=== PATIENT | male | born 1935 | race Caucasian/White ===

== ENCOUNTER → 2021-06-02 | Outpatient (CLI) | payer OTHER ==
[2021-06-02 11:16] LABS: Urine Bacteria NONE SEEN /hpf (None Seen); Urine Blood 1+ /uL (Negative); Urine Specific Gravity 1.014 (1.001-1.035); Urine WBC 2 /hpf (0 - 3)
[2021-06-02 11:42] LABS: Cholesterol 203 mg/dL (< 200); HDL Cholesterol 32 mg/dL (40-59); LDL Cholesterol 127 mg/dL (< 100); Triglycerides 169 mg/dL (< 150)
== END | disposition home or self-care (01) ==
LOC: LAB 10:47
PROVIDERS: ATTEND Internal Medicine
DX: R60.0 Localized edema (principal); B20 Human immunodeficiency virus [HIV] disease
CPT/HCPCS: 36415; 80061; 81001; 83036; 83880; 84443

== ENCOUNTER → 2022-10-05 | Outpatient (CLI) | payer OTHER ==
[2022-10-05 12:41] LABS: Albumin 3.4 g/dL (3.4-5.0); Calcium 8.6 mg/dL (8.5-10.1); Potassium 4.4 mmol/L (3.5-5.1)
[2022-10-05 12:44] LABS: BUN/Creatinine Ratio 11.3
[2022-10-05 12:45] LABS: Bilirubin, Total 0.5 mg/dL (0.2-1.0); Total Protein 7.6 g/dL (6.4-8.2)
== END | disposition home or self-care (01) ==
LOC: LAB 11:58
PROVIDERS: ATTEND Internal Medicine
DX: R06.00 Dyspnea, unspecified (principal)
CPT/HCPCS: 36415; 80053; 83880

== ENCOUNTER → 2023-10-01 | Outpatient (CLI) | payer OTHER ==
[2023-10-01 08:23] LABS: Basophils # (auto) 0.1 10 ^3/uL (0-0.2); Basophils % (auto) 0.7 % (0.0-2.0); Eosinophils # (auto) 0.3 10 ^3/uL (0-0.8); Eosinophils % (auto) 4.2 % (0.0-7.0); Hematocrit 46.1 % (41.0-53.0); Hemoglobin 15.4 g/dL (13.5-17.5); Lymphocytes # (auto) 1.6 10 ^3/uL (0.4-5.4); Mean Corpuscular Hemoglobin 33.2 pg (28.0-32.0); Mean Corpuscular Hgb Conc. 33.5 g/dL (32.0-36.0); Mean Corpuscular Volume 99.2 fL (80.0-100.0); Monocytes # (auto) 0.9 10 ^3/uL (0-1.3); Monocytes % (auto) 10.5 % (0.0-12.0); Neutrophils # (auto) 5.3 10 ^3/uL (1.6-8.6); Neutrophils % (auto) 64.6 % (37.0-80.0); Nucleated Red Blood Cells % 0.2 %; Red Blood Cells 4.65 10^6/uL (4.5-5.90); White Blood Cell 8.2 10^3/uL (4.4-10.8)
[2023-10-01 08:30] LABS: Urine Bacteria NONE SEEN /hpf (None Seen); Urine Blood Negative /uL (Negative); Urine Clarity Clear (Clear); Urine Color Yellow (Yellow); Urine Protein, UAD Negative (Negative); Urine Specific Gravity 1.017 (1.001-1.035); Urine Urobilinogen Normal (Negative); Urine WBC 4 /hpf (0 - 3)
[2023-10-01 08:58] LABS: Alanine Aminotransferase 24 U/L (7-40); Alkaline Phosphatase 61 U/L (46-116); Anion Gap 7 (5-15); Aspartate Aminotransferase 31 U/L (13-40); BUN/Creatinine Ratio 16.1 (10.0-20.0); Blood Urea Nitrogen 22 mg/dL (9-23); Calcium 8.9 mg/dL (8.5-10.1); Carbon Dioxide 26 mmol/L (20-30); Chloride 107 mmol/L (98-107); Glucose 81 mg/dL (74-106); Potassium 4.2 mmol/L (3.5-5.1); Sodium 140 mmol/L (136-145)
[2023-10-01 08:59] LABS: Bilirubin, Total 0.5 mg/dL (0.2-1.0); Total Protein 6.7 g/dL (5.7-8.2)
== END | disposition home or self-care (01) ==
LOC: LAB 08:03
PROVIDERS: ATTEND Internal Medicine
DX: I10 Essential (primary) hypertension (principal); E78.5 Hyperlipidemia, unspecified
CPT/HCPCS: 36415; 80053; 81001; 85025

== ENCOUNTER → 2024-02-21 | Outpatient (CLI) | payer OTHER ==
[2024-02-21 10:43] LABS: Anion Gap 7 (5-15); Carbon Dioxide 25 mmol/L (20-30); Chloride 108 mmol/L (98-107); Sodium 140 mmol/L (136-145)
[2024-02-21 10:44] LABS: Calcium 8.8 mg/dL (8.5-10.1); Creatinine, Urine 119.58 mg/dL (30.0-125.0)
[2024-02-21 10:48] LABS: Glucose 98 mg/dL (74-106)
[2024-02-21 10:49] LABS: BUN/Creatinine Ratio 10.9 (10.0-20.0); Blood Urea Nitrogen 15 mg/dL (9-23); LDL Cholesterol 57 mg/dL (< 100); Triglycerides 87 mg/dL (< 150)
[2024-02-21 10:51] LABS: Cholesterol 104 mg/dL (< 200); HDL Cholesterol 32 mg/dL (40-59)
[2024-02-21 11:24] LABS: Urine Bacteria FEW /hpf (None Seen); Urine Blood Negative /uL (Negative); Urine Clarity Turbid (Clear); Urine Color Light-Yellow (Yellow); Urine Mucus FEW (None Seen); Urine Protein, UAD Negative (Negative); Urine Specific Gravity 1.018 (1.001-1.035); Urine Urobilinogen Normal (Negative); Urine WBC 14 /hpf (0 - 3)
== END | disposition home or self-care (01) ==
LOC: LAB 09:32
PROVIDERS: ATTEND Internal Medicine
DX: N18.30 Chronic kidney disease, stage 3 unspecified (principal); R73.03 Prediabetes
CPT/HCPCS: 36415; 80048; 80061; 81001; 82043; 82570; 83036

== ENCOUNTER → 2024-05-20 | Outpatient (CLI) | payer OTHER ==
[2024-05-20 11:08] LABS: Basophils # (auto) 0.1 10 ^3/uL (0-0.2); Basophils % (auto) 0.9 % (0.0-2.0); Eosinophils # (auto) 0.5 10 ^3/uL (0-0.8); Eosinophils % (auto) 5.7 % (0.0-7.0); Hematocrit 48.8 % (41.0-53.0); Hemoglobin 16.8 g/dL (13.5-17.5); Lymphocytes # (auto) 2.1 10 ^3/uL (0.4-5.4); Lymphocytes % (auto) 26.9 % (10.0-50.0); Mean Corpuscular Hemoglobin 33.5 pg (28.0-32.0); Mean Corpuscular Hgb Conc. 34.5 g/dL (32.0-36.0); Mean Corpuscular Volume 96.9 fL (80.0-100.0); Monocytes # (auto) 0.7 10 ^3/uL (0-1.3); Monocytes % (auto) 8.4 % (0.0-12.0); Neutrophils # (auto) 4.6 10 ^3/uL (1.6-8.6); Neutrophils % (auto) 58.1 % (37.0-80.0); Red Blood Cells 5.04 10^6/uL (4.5-5.90); Red Cell Distribution Width 15.2 % (11.8-14.3); White Blood Cell 7.9 10^3/uL (4.4-10.8)
[2024-05-20 11:30] LABS: Alanine Aminotransferase 17 U/L (7-40); Albumin 4.3 g/dL (3.2-4.8); Alkaline Phosphatase 61 U/L (46-116); Anion Gap 8 (5-15); Blood Urea Nitrogen 17 mg/dL (9-23); Calcium 9.5 mg/dL (8.7-10.4); Carbon Dioxide 25 mmol/L (20-30); Chloride 106 mmol/L (98-107); Glucose 98 mg/dL (74-106); Potassium 4.2 mmol/L (3.5-5.1); Sodium 139 mmol/L (136-145)
[2024-05-20 11:31] LABS: Aspartate Aminotransferase 19 U/L (13-40); Bilirubin, Total 0.8 mg/dL (0.2-1.0); Total Protein 7.2 g/dL (5.7-8.2)
[2024-05-21 05:07] LABS: Baso (Absolute) 0.1 x10E3/uL (0.0-0.2); Basos 1 % (Not Estab.); Eos 5 % (Not Estab.); Eos (Absolute) 0.4 x10E3/uL (0.0-0.4); Hematocrit 50.5 % (37.5-51.0); Hemoglobin 16.9 g/dL (13.0-17.7); Lymphs 29 % (Not Estab.); Lymphs (Absolute) 2.4 x10E3/uL (0.7-3.1); MCH 32.7 pg (26.6-33.0); MCHC 33.5 g/dL (31.5-35.7); MCV 98 fL (79-97); Monocytes 8 % (Not Estab.); Monocytes (Absolute) 0.7 x10E3/uL (0.1-0.9); Neutrophils 56 % (Not Estab.); Neutrophils (Absolute) 4.6 x10E3/uL (1.4-7.0); Platelets 198 x10E3/uL (150-450); RBC 5.17 x10E6/uL (4.14-5.80); RDW 13.6 % (11.6-15.4); WBC 8.2 x10E3/uL (3.4-10.8)
[2024-05-21 07:06] LABS: RPR Non Reactive (Non Reactive)
[2024-05-21 11:06] LABS: % CD 4 Pos Lymph 27.7 % (30.8-58.5); % CD 8 Pos Lymph 49.7 % (12.0-35.5); Absolute CD 4 Helper 665 /uL (359-1519); CD4/CD8 Ratio 0.56 (0.92-3.72)
[2024-05-21 12:06] LABS: Chlamydia Trachomatis, NAA Negative (Negative); Neisseria gonorrhoeae, NAA Negative (Negative)
== END | disposition home or self-care (01) ==
LOC: LAB 10:29
PROVIDERS: ATTEND Specialist
DX: I12.9 Hypertensive chronic kidney disease with stage 1 through stage 4 chronic kidney disease, or unspecified chronic kidney disease (principal); N18.31 Chronic kidney disease, stage 3a; B20 Human immunodeficiency virus [HIV] disease
CPT/HCPCS: 36415; 80053; 85025; 86360; 86592

== ENCOUNTER → 2024-08-26 | Outpatient (CLI) | payer OTHER ==
[2024-08-26 11:45] LABS: Basophils # (auto) 0.1 10 ^3/uL (0-0.2); Eosinophils # (auto) 0.2 10 ^3/uL (0-0.8); Eosinophils % (auto) 2.9 % (0.0-7.0); Hematocrit 51.5 % (41.0-53.0); Hemoglobin 17.6 g/dL (13.5-17.5); Lymphocytes # (auto) 2.1 10 ^3/uL (0.4-5.4); Lymphocytes % (auto) 24.9 % (10.0-50.0); Mean Corpuscular Hemoglobin 33.5 pg (28.0-32.0); Mean Corpuscular Hgb Conc. 34.2 g/dL (32.0-36.0); Monocytes # (auto) 0.7 10 ^3/uL (0-1.3); Monocytes % (auto) 8.3 % (0.0-12.0); Neutrophils # (auto) 5.3 10 ^3/uL (1.6-8.6); Neutrophils % (auto) 62.9 % (37.0-80.0); Nucleated Red Blood Cells % 0.1 %; Platelet Count (auto) 196 10^3/uL (140-450); Red Blood Cells 5.26 10^6/uL (4.5-5.90); Red Cell Distribution Width 14.7 % (11.8-14.3); White Blood Cell 8.5 10^3/uL (4.4-10.8)
[2024-08-26 12:03] LABS: Alanine Aminotransferase 23 U/L (7-40); Albumin 4.1 g/dL (3.2-4.8); Alkaline Phosphatase 57 U/L (46-116); Anion Gap 6 (5-15); Aspartate Aminotransferase 24 U/L (13-40); Blood Urea Nitrogen 16 mg/dL (9-23); Calcium 9.1 mg/dL (8.7-10.4); Carbon Dioxide 26 mmol/L (20-31); Chloride 108 mmol/L (98-107); Glucose 101 mg/dL (74-106); Potassium 4.3 mmol/L (3.5-5.1); Sodium 140 mmol/L (136-145)
[2024-08-26 12:04] LABS: Bilirubin, Total 0.6 mg/dL (0.2-1.0); Total Protein 7.3 g/dL (5.7-8.2)
[2024-08-27 04:06] LABS: Baso (Absolute) 0.1 x10E3/uL (0.0-0.2); Basos 1 % (Not Estab.); Eos 3 % (Not Estab.); Eos (Absolute) 0.2 x10E3/uL (0.0-0.4); Hematocrit 52.2 % (37.5-51.0); Hemoglobin 17.6 g/dL (13.0-17.7); Immature Granulocytes (Abs) 0.1 x10E3/uL (0.0-0.1); Lymphs 27 % (Not Estab.); Lymphs (Absolute) 2.3 x10E3/uL (0.7-3.1); MCH 32.7 pg (26.6-33.0); MCHC 33.7 g/dL (31.5-35.7); MCV 97 fL (79-97); Monocytes 8 % (Not Estab.); Monocytes (Absolute) 0.7 x10E3/uL (0.1-0.9); Neutrophils 60 % (Not Estab.); Neutrophils (Absolute) 5.1 x10E3/uL (1.4-7.0); Platelets 198 x10E3/uL (150-450); RBC 5.38 x10E6/uL (4.14-5.80); RDW 13.7 % (11.6-15.4); WBC 8.5 x10E3/uL (3.4-10.8)
[2024-08-27 12:07] LABS: % CD 4 Pos Lymph 28.1 % (30.8-58.5); % CD 8 Pos Lymph 51.6 % (12.0-35.5); Absolute CD 4 Helper 646 /uL (359-1519); CD4/CD8 Ratio 0.54 (0.92-3.72)
== END | disposition home or self-care (01) ==
LOC: LAB 11:10
PROVIDERS: ATTEND Specialist
DX: B20 Human immunodeficiency virus [HIV] disease (principal); N18.31 Chronic kidney disease, stage 3a
CPT/HCPCS: 36415; 80053; 85025; 86360

== ENCOUNTER → 2024-10-05 | Outpatient (CLI) | payer OTHER ==
[2024-10-05 09:40] LABS: Urine Bacteria None Seen /hpf (None Seen)
[2024-10-05 09:44] LABS: Basophils # (auto) 0.1 10 ^3/uL (0-0.2); Eosinophils # (auto) 0.3 10 ^3/uL (0-0.8); Eosinophils % (auto) 3.4 % (0.0-7.0); Hematocrit 49.2 % (41.0-53.0); Hemoglobin 16.5 g/dL (13.5-17.5); Lymphocytes % (auto) 24.8 % (10.0-50.0); Mean Corpuscular Hemoglobin 32.3 pg (28.0-32.0); Mean Corpuscular Hgb Conc. 33.6 g/dL (32.0-36.0); Monocytes # (auto) 0.7 10 ^3/uL (0-1.3); Neutrophils % (auto) 61.8 % (37.0-80.0); Nucleated Red Blood Cells % 0.1 %; Platelet Count (auto) 224 10^3/uL (140-450); Red Blood Cells 5.12 10^6/uL (4.5-5.90); Red Cell Distribution Width 14.7 % (11.8-14.3); White Blood Cell 8.1 10^3/uL (4.4-10.8)
[2024-10-05 10:03] LABS: Urine Blood Negative /uL (Negative); Urine Clarity Clear (Clear); Urine Color Light-Yellow (Yellow); Urine Mucus FEW (None Seen); Urine Protein, UAD Negative (Negative); Urine Specific Gravity 1.018 (1.001-1.035); Urine Urobilinogen Normal (Negative); Urine WBC 1 /hpf (0 - 3)
[2024-10-05 10:41] LABS: Alanine Aminotransferase 20 U/L (7-40); Alkaline Phosphatase 59 U/L (46-116); Anion Gap 7 (5-15); Aspartate Aminotransferase 26 U/L (13-40); BUN/Creatinine Ratio 13.1 (10.0-20.0); Blood Urea Nitrogen 20 mg/dL (9-23); Calcium 9.6 mg/dL (8.7-10.4); Carbon Dioxide 26 mmol/L (20-31); Cholesterol 182 mg/dL (< 200); Glucose 90 mg/dL (74-106); Potassium 4.5 mmol/L (3.5-5.1); Sodium 141 mmol/L (136-145)
[2024-10-05 10:42] LABS: Bilirubin, Total 0.4 mg/dL (0.2-1.0); Total Protein 7.3 g/dL (5.7-8.2)
[2024-10-05 10:56] LABS: Chloride 108 mmol/L (98-107); HDL Cholesterol 35 mg/dL (40-59); LDL Cholesterol 108 mg/dL (< 100); Triglycerides 222 mg/dL (< 150)
[2024-10-06 04:06] LABS: Baso (Absolute) 0.1 x10E3/uL (0.0-0.2); Basos 1 % (Not Estab.); Eos 4 % (Not Estab.); Eos (Absolute) 0.3 x10E3/uL (0.0-0.4); Hematocrit 49.4 % (37.5-51.0); Hemoglobin 16.7 g/dL (13.0-17.7); Immature Granulocytes (Abs) 0.1 x10E3/uL (0.0-0.1); Lymphs 26 % (Not Estab.); Lymphs (Absolute) 2.1 x10E3/uL (0.7-3.1); MCH 32.7 pg (26.6-33.0); MCHC 33.8 g/dL (31.5-35.7); MCV 97 fL (79-97); Monocytes 8 % (Not Estab.); Monocytes (Absolute) 0.7 x10E3/uL (0.1-0.9); Neutrophils 60 % (Not Estab.); Neutrophils (Absolute) 4.8 x10E3/uL (1.4-7.0); Platelets 217 x10E3/uL (150-450); RDW 13.2 % (11.6-15.4)
[2024-10-06 15:06] LABS: % CD 4 Pos Lymph 27.2 % (30.8-58.5); Absolute CD 4 Helper 571 /uL (359-1519); CD4/CD8 Ratio 0.56 (0.92-3.72)
== END | disposition home or self-care (01) ==
LOC: LAB 09:26
PROVIDERS: ATTEND Internal Medicine
DX: E78.5 Hyperlipidemia, unspecified (principal); I25.9 Chronic ischemic heart disease, unspecified; R73.03 Prediabetes; Z21 Asymptomatic human immunodeficiency virus [HIV] infection status
CPT/HCPCS: 36415; 80053; 80061; 81001; 83036; 84443; 85025; 86360

== ENCOUNTER 2025-03-25 09:38 | Outpatient (CLI) | payer OTHER ==
[2025-03-25 10:11] LABS: Basophils # (auto) 0.1 10 ^3/uL (0-0.2); Basophils % (auto) 0.9 % (0.0-2.0); Eosinophils # (auto) 0.3 10 ^3/uL (0-0.8); Eosinophils % (auto) 3.9 % (0.0-7.0); Hematocrit 48.6 % (41.0-53.0); Hemoglobin 16.5 g/dL (13.5-17.5); Lymphocytes # (auto) 2.2 10 ^3/uL (0.4-5.4); Lymphocytes % (auto) 28.3 % (10.0-50.0); Mean Corpuscular Hemoglobin 32.7 pg (28.0-32.0); Mean Corpuscular Hgb Conc. 33.9 g/dL (32.0-36.0); Mean Corpuscular Volume 96.4 fL (80.0-100.0); Monocytes # (auto) 0.7 10 ^3/uL (0-1.3); Monocytes % (auto) 8.5 % (0.0-12.0); Neutrophils # (auto) 4.6 10 ^3/uL (1.6-8.6); Neutrophils % (auto) 58.4 % (37.0-80.0); Nucleated Red Blood Cells % 0.2 %; Platelet Count (auto) 189 10^3/uL (140-450); Red Blood Cells 5.04 10^6/uL (4.5-5.90); Red Cell Distribution Width 14.7 % (11.8-14.3); White Blood Cell 7.9 10^3/uL (4.4-10.8)
[2025-03-25 10:45] LABS: Alanine Aminotransferase 13 U/L (7-40); Alkaline Phosphatase 54 U/L (46-116); Anion Gap 6 (5-15); Aspartate Aminotransferase 17 U/L (13-40); Blood Urea Nitrogen 21 mg/dL (9-23); Calcium 9.6 mg/dL (8.7-10.4); Carbon Dioxide 27 mmol/L (20-31); Potassium 4.7 mmol/L (3.5-5.1); Sodium 143 mmol/L (136-145); Total Protein 7.2 g/dL (5.7-8.2)
[2025-03-25 10:46] LABS: Albumin 4.1 g/dL (3.2-4.8); BUN/Creatinine Ratio 13.7 (10.0-20.0); Bilirubin, Total 0.6 mg/dL (0.2-1.0)
[2025-03-25 10:47] LABS: Chloride 110 mmol/L (98-107); Glucose 111 mg/dL (74-106)
[2025-03-26 07:07] LABS: Baso (Absolute) 0.1 x10E3/uL (0.0-0.2); Basos 1 % (Not Estab.); Eos 4 % (Not Estab.); Eos (Absolute) 0.3 x10E3/uL (0.0-0.4); Hemoglobin 16.4 g/dL (13.0-17.7); Immature Granulocytes (Abs) 0.1 x10E3/uL (0.0-0.1); Lymphs 29 % (Not Estab.); Lymphs (Absolute) 2.5 x10E3/uL (0.7-3.1); MCHC 32.8 g/dL (31.5-35.7); MCV 98 fL (79-97); Monocytes 8 % (Not Estab.); Monocytes (Absolute) 0.7 x10E3/uL (0.1-0.9); Neutrophils 57 % (Not Estab.); Neutrophils (Absolute) 4.9 x10E3/uL (1.4-7.0); Platelets 201 x10E3/uL (150-450); RBC 5.12 x10E6/uL (4.14-5.80); RDW 13.4 % (11.6-15.4); WBC 8.5 x10E3/uL (3.4-10.8)
[2025-03-26 12:07] LABS: % CD 4 Pos Lymph 28.1 % (30.8-58.5); % CD 8 Pos Lymph 52.1 % (12.0-35.5); Absolute CD 4 Helper 703 /uL (359-1519); CD4/CD8 Ratio 0.54 (0.92-3.72)
== END 2025-03-25 17:00 | disposition home or self-care (01) ==
LOC: LAB 09:38
PROVIDERS: ATTEND Specialist
DX: I12.9 Hypertensive chronic kidney disease with stage 1 through stage 4 chronic kidney disease, or unspecified chronic kidney disease (principal); N18.31 Chronic kidney disease, stage 3a
CPT/HCPCS: 36415; 80053; 85025; 86360; 86780; 87536

== ENCOUNTER 2025-04-15 11:13 | Outpatient (CLI) | payer OTHER ==
[2025-04-15 11:51] LABS: Basophils # (auto) 0.1 10 ^3/uL (0-0.2); Basophils % (auto) 1.1 % (0.0-2.0); Eosinophils # (auto) 0.3 10 ^3/uL (0-0.8); Eosinophils % (auto) 3.7 % (0.0-7.0); Hematocrit 49.2 % (41.0-53.0); Lymphocytes # (auto) 2.5 10 ^3/uL (0.4-5.4); Lymphocytes % (auto) 28.3 % (10.0-50.0); Mean Corpuscular Hgb Conc. 34.5 g/dL (32.0-36.0); Mean Corpuscular Volume 95.9 fL (80.0-100.0); Monocytes # (auto) 0.8 10 ^3/uL (0-1.3); Monocytes % (auto) 9.7 % (0.0-12.0); Neutrophils % (auto) 57.2 % (37.0-80.0); Nucleated Red Blood Cells % 0.1 %; Platelet Count (auto) 209 10^3/uL (140-450); Red Blood Cells 5.13 10^6/uL (4.5-5.90); Red Cell Distribution Width 14.5 % (11.8-14.3); White Blood Cell 8.7 10^3/uL (4.4-10.8)
[2025-04-15 12:05] LABS: Alanine Aminotransferase 10 U/L (7-40); Alkaline Phosphatase 49 U/L (46-116); Anion Gap 7 (5-15); BUN/Creatinine Ratio 12.9 (10.0-20.0); Blood Urea Nitrogen 18 mg/dL (9-23); Calcium 9.8 mg/dL (8.7-10.4); Carbon Dioxide 26 mmol/L (20-31); Chloride 106 mmol/L (98-107); Glucose 85 mg/dL (74-106); Potassium 4.5 mmol/L (3.5-5.1); Sodium 139 mmol/L (136-145); Total Protein 7.3 g/dL (5.7-8.2)
[2025-04-15 12:06] LABS: Albumin 4.3 g/dL (3.2-4.8); Aspartate Aminotransferase 23 U/L (<34); Bilirubin, Total 0.5 mg/dL (0.2-1.0)
[2025-04-16 04:06] LABS: Baso (Absolute) 0.1 x10E3/uL (0.0-0.2); Basos 1 % (Not Estab.); Eos 4 % (Not Estab.); Eos (Absolute) 0.4 x10E3/uL (0.0-0.4); Immature Granulocytes (Abs) 0.1 x10E3/uL (0.0-0.1); Lymphs 31 % (Not Estab.); Lymphs (Absolute) 2.8 x10E3/uL (0.7-3.1); MCH 32.4 pg (26.6-33.0); MCHC 33.3 g/dL (31.5-35.7); MCV 97 fL (79-97); Monocytes 9 % (Not Estab.); Monocytes (Absolute) 0.8 x10E3/uL (0.1-0.9); Neutrophils 54 % (Not Estab.); Neutrophils (Absolute) 4.9 x10E3/uL (1.4-7.0); Platelets 217 x10E3/uL (150-450); RBC 5.24 x10E6/uL (4.14-5.80); RDW 13.7 % (11.6-15.4); WBC 9.2 x10E3/uL (3.4-10.8)
[2025-04-16 14:06] LABS: % CD 4 Pos Lymph 27.7 % (30.8-58.5); % CD 8 Pos Lymph 50.1 % (12.0-35.5); Absolute CD 4 Helper 776 /uL (359-1519); CD4/CD8 Ratio 0.55 (0.92-3.72)
== END 2025-04-15 17:00 | disposition home or self-care (01) ==
LOC: LAB 11:13
PROVIDERS: ATTEND Internal Medicine
DX: I10 Essential (primary) hypertension (principal); B20 Human immunodeficiency virus [HIV] disease; E78.5 Hyperlipidemia, unspecified; R73.03 Prediabetes
CPT/HCPCS: 36415; 80053; 82306; 83036; 85025; 86360

== ENCOUNTER 2025-08-30 10:11 | Outpatient (CLI) | payer OTHER ==
[2025-08-30 11:05] LABS: Hematocrit 47.0 % (41.0-53.0); Hemoglobin 16.1 g/dL (13.5-17.5); Mean Corpuscular Hemoglobin 32.8 pg (28.0-32.0); Mean Corpuscular Volume 96.0 fL (80.0-100.0); Nucleated Red Blood Cells % 0.1 %
[2025-08-30 13:36] LABS: Alanine Aminotransferase 17 U/L (7-40); Alkaline Phosphatase 53 U/L (46-116); Anion Gap 9 (5-15); Calcium 8.9 mg/dL (8.7-10.4); Carbon Dioxide 27 mmol/L (20-31); Chloride 105 mmol/L (98-107); Potassium 4.8 mmol/L (3.5-5.1); Sodium 141 mmol/L (136-145)
[2025-08-30 13:37] LABS: Albumin 4.0 g/dL (3.2-4.8); BUN/Creatinine Ratio 11.6 (10.0-20.0); Blood Urea Nitrogen 17 mg/dL (9-23); Glucose 96 mg/dL (74-106)
[2025-08-30 13:38] LABS: Total Protein 7.1 g/dL (5.7-8.2)
[2025-08-30 13:39] LABS: Bilirubin, Total 0.5 mg/dL (0.2-1.0)
[2025-08-31 08:07] LABS: Hematocrit 50.2 % (37.5-51.0); Hemoglobin 16.3 g/dL (13.0-17.7); MCH 32.1 pg (26.6-33.0); MCHC 32.5 g/dL (31.5-35.7); MCV 99 fL (79-97); RBC 5.07 x10E6/uL (4.14-5.80); RDW 13.9 % (11.6-15.4); WBC 8.1 x10E3/uL (3.4-10.8)
[2025-08-31 11:07] LABS: CD4/CD8 Ratio 0.60 (0.92-3.72)
== END 2025-08-30 17:00 | disposition home or self-care (01) ==
LOC: LAB 10:11
PROVIDERS: ATTEND Specialist
DX: N18.31 Chronic kidney disease, stage 3a (principal)
CPT/HCPCS: 36415; 80053; 85025; 86360; 87536

== ENCOUNTER 2025-10-12 08:43 | Outpatient (CLI) | payer OTHER ==
[2025-10-12 09:35] LABS: Anion Gap 8 (5-15); Carbon Dioxide 25 mmol/L (20-31); Potassium 4.5 mmol/L (3.5-5.1); Sodium 142 mmol/L (136-145)
[2025-10-12 09:36] LABS: Calcium 9.0 mg/dL (8.7-10.4)
[2025-10-12 09:41] LABS: BUN/Creatinine Ratio 9.4 (10.0-20.0); Blood Urea Nitrogen 14 mg/dL (9-23); Glucose 84 mg/dL (74-106)
[2025-10-12 09:53] LABS: Chloride 109 mmol/L (98-107)
== END 2025-10-12 17:00 | disposition home or self-care (01) ==
LOC: LAB 08:43
PROVIDERS: ATTEND Internal Medicine
DX: N18.32 Chronic kidney disease, stage 3b (principal)
CPT/HCPCS: 36415; 80048